=== PATIENT | female | born 1960 | race African-American/Black ===

== ENCOUNTER 2022-05-02 04:34 | Inpatient (IN) | payer MEDICAID ==
[~2022-05-02] VITALS: Ht 170.2 cm; Wt 62.5 kg
[~2022-05-02 04:34] MED LIST: ALBUTEROL; CARB200T PO; DILANTIN; PHEN100C4 PO; TEGRETOL
[2022-05-02] MEDS ORDERED: METHYLPREDNISOLONE SOD SUCC 125 MG/2 ML VIAL IV STA (06:02)
[2022-05-02] MEDS ORDERED: IPRATROPIUM BROMIDE (0.02%) 0.5MG/2.5ML NEB HHN STA (06:02)
[2022-05-02] MEDS ORDERED: ALBUTEROL (0.083%) 2.5MG/3ML NEB HHN STA (06:02)
[2022-05-02 06:25] LABS: BASOPHILS % 0.3 % (0.0-2.0); EOSINOPHILS % 0.2 % (0.0-5.0); HEMATOCRIT. 38.6 % (36.0-48.0); HEMOGLOBIN. 12.9 g/dL (12.0-16.0); LYMPHOCYTES % 14.5 % (20.0-50.0); MEAN CORPUSCULAR HEMOGLOBIN 33.4 pg (28.0-32.0); MEAN CORPUSCULAR VOLUME 99.8 fL (81.0-99.0); MEAN PLATELET VOLUME 9.3 fl (7.4-10.4); MONOCYTES % 7.4 % (2.0-8.0); NEUTROPHILS % 77.6 % (40.0-76.0); PLATELET 138 x1000/uL (130-400); RED BLOOD CELL COUNT 3.86 mill/uL (4.2-5.4); RED CELL DISTRIBUTION WIDTH 14.2 % (11.6-14.6)
[2022-05-02 06:31] LABS: CHLORIDE 108 mEq/L (98-107)
[2022-05-02] MEDS ORDERED: ALBUTEROL (0.083%) 2.5MG/3ML NEB ONE (07:45)
[2022-05-02 13:15] VITALS: BP 126/66
[2022-05-02] MEDS ORDERED: ASPI-1406 PO (14:17)
[2022-05-02] MEDS ORDERED: KEPP500 PO (14:17)
[2022-05-02] MEDS: ASPIRIN 81MG EC TABLET PO SCH (15:45)
[2022-05-02] MEDS ORDERED: ONDANSETRON HCL 4MG/2ML INJ IV PRN (15:45)
[2022-05-02] MEDS ORDERED: IPRATROPIUM/ALBUTEROL 0.5-3(2.5)MG/3ML NEB HHN PRN (15:45)
[2022-05-02 16:00] VITALS: BP 135/87
[2022-05-02] MEDS ORDERED: CARBAMAZEPINE 100MG TABLET CHEW PO SCH (17:00)
[2022-05-02] MEDS: LEVOFLOXACIN 500MG PREMIX 100 ML IV SCH (17:26)
[2022-05-02] MEDS: LEVETIRACETAM 500MG TABLET PO SCH ×2 (17:27→22:24)
[2022-05-02] MEDS: ENOXAPARIN 40MG/0.4ML SYR SUBCUT SCH (17:28)
[2022-05-02] MEDS: ACETAMINOPHEN 325MG TABLET PO PRN ×2 (17:29→22:25)
[2022-05-02 20:00] VITALS: BP 121/54
[2022-05-02] MEDS: GUAIFENESIN 200MG/10ML SUGAR FREE UDC PO PRN (22:24)
[2022-05-02] MEDS: CARBAMAZEPINE 200MG TABLET PO SCH (22:24)
[2022-05-03] VITALS: BP 133/65
[2022-05-03 01:02] LABS: CLARITY URINE CLEAR (CLEAR); COLOR URINE YELLOW (YELLOW); KETONES URINE NEGATIVE (NEGATIVE); LEUKOCYTE ESTERASE URINE 1+ (NEGATIVE); NITRITE URINE NEGATIVE (NEGATIVE); OCCULT BLOOD URINE NEGATIVE (NEGATIVE); PH URINE 6.5 (4.5-8.0); PROTEIN URINE TRACE (NEGATIVE); SPECIFIC GRAVITY URINE 1.018 (1.005-1.030)
[2022-05-03 01:18] LABS: *AMPHETAMINES SCREEN URINE NEGATIVE (NEGATIVE); *BARBITURATES SCREEN URINE NEGATIVE (NEGATIVE); *BENZODIAZEPINES SCREEN URINE NEGATIVE (NEGATIVE); *COCAINE SCREEN URINE NEGATIVE (NEGATIVE); CANNABINOID URINE SCREEN PRESUMTIVE POSITIVE (NEGATIVE); METHADONE URINE SCREEN NEGATIVE (NEGATIVE); OPIATES URINE SCREEN PRESUMTIVE POSITIVE (NEGATIVE); PHENCYCLIDINE URINE SCREEN NEGATIVE (NEGATIVE)
[2022-05-03 03:08] LABS: CREATINE KINASE MB FRACTION 1.8 ng/mL (0.5-3.6)
[2022-05-03 03:59] VITALS: BP 128/61
[2022-05-03] MEDS: GUAIFENESIN 200MG/10ML SUGAR FREE UDC PO PRN ×3 (04:14→19:32)
[2022-05-03] MEDS: ACETAMINOPHEN 325MG TABLET PO PRN ×2 (06:25→14:28)
[2022-05-03 08:00] VITALS: BP 124/60
[2022-05-03 10:41] LABS: CREATINE KINASE MB FRACTION 2.1 ng/mL (0.5-3.6)
[2022-05-03] MEDS: LEVETIRACETAM 500MG TABLET PO SCH ×2 (11:00→21:36)
[2022-05-03] MEDS: CARBAMAZEPINE 200MG TABLET PO SCH ×3 (11:00→17:43)
[2022-05-03] MEDS: ASPIRIN 81MG EC TABLET PO SCH (11:00)
[2022-05-03 12:00] VITALS: BP 118/76
[2022-05-03] MEDS: METHYLPREDNISOLONE SOD SUCC 40 MG/ML VIAL IV SCH ×2 (12:22→21:36)
[2022-05-03 16:00] VITALS: BP 121/77
[2022-05-03] MEDS: LEVOFLOXACIN 500MG PREMIX 100 ML IV SCH (17:17)
[2022-05-03] MEDS: ENOXAPARIN 40MG/0.4ML SYR SUBCUT SCH (17:43)
[2022-05-03] MEDS ORDERED: POTASSIUM CHLORIDE 20MEQ TABLET SR PO NR (19:45)
[2022-05-03 20:00] VITALS: BP 108/72
[2022-05-03] MEDS: FAMOTIDINE 20MG TABLET PO SCH (21:36)
[2022-05-04] VITALS: BP 141/91
[2022-05-04 04:00] VITALS: BP 117/74
[2022-05-04] MEDS: METHYLPREDNISOLONE SOD SUCC 40 MG/ML VIAL IV SCH ×3 (04:30→20:20)
[2022-05-04 08:01] VITALS: BP 118/63
[2022-05-04] MEDS: CARBAMAZEPINE 200MG TABLET PO SCH ×3 (08:38→16:45)
[2022-05-04] MEDS: LEVETIRACETAM 500MG TABLET PO SCH ×2 (08:38→20:20)
[2022-05-04] MEDS: ASPIRIN 81MG EC TABLET PO SCH (08:42)
[2022-05-04] MEDS: LEVOFLOXACIN 500MG TABLET PO SCH (11:29)
[2022-05-04 12:06] VITALS: BP 102/66
[2022-05-04] MEDS ORDERED: INFLUENZA VACCINE 05/PF 0.5 ML SYRINGE IM ONE (15:30)
[2022-05-04] MEDS ORDERED: PNEUMOCOCCAL 23-VAL P-SAC VAC 0.5 ML IM ONE (15:30)
[2022-05-04 15:46] VITALS: BP 112/64
[2022-05-04] MEDS: ENOXAPARIN 40MG/0.4ML SYR SUBCUT SCH (16:45)
[2022-05-04 20:00] VITALS: BP 117/41
[2022-05-04] MEDS: FAMOTIDINE 20MG TABLET PO SCH (20:20)
[2022-05-04] MEDS ORDERED: DIPHENHYDRAMINE 50MG/ML VIAL IV PRN (21:00)
[2022-05-05] VITALS: BP 120/56
[2022-05-05 04:00] VITALS: BP 122/51
[2022-05-05] MEDS: METHYLPREDNISOLONE SOD SUCC 40 MG/ML VIAL IV SCH ×2 (04:38→11:20)
[2022-05-05 08:00] VITALS: BP_SYST 114; BP_SYST 154; BP_DIAS 61; BP_DIAS 80
[2022-05-05] MEDS: CARBAMAZEPINE 200MG TABLET PO SCH ×2 (08:47→13:12)
[2022-05-05] MEDS: LEVETIRACETAM 500MG TABLET PO SCH (08:47)
[2022-05-05] MEDS: ASPIRIN 81MG EC TABLET PO SCH (08:50)
[2022-05-05] MEDS: LEVOFLOXACIN 500MG TABLET PO SCH (11:20)
[2022-05-05 15:25] VITALS: BP 117/39
== END 2022-05-05 16:26 | disposition home or self-care (01) | DRG 140 ==
LOC: ER 04:34 → 6WST 09:59
PROVIDERS: ADMIT Internal Medicine; ATTEND Internal Medicine
DX: J44.1 Chronic obstructive pulmonary disease with (acute) exacerbation (principal); J96.01 Acute respiratory failure with hypoxia; G40.909 Epilepsy, unspecified, not intractable, without status epilepticus; Z20.822 Contact with and (suspected) exposure to COVID-19; E87.6 Hypokalemia; F12.90 Cannabis use, unspecified, uncomplicated; Z86.73 Personal history of transient ischemic attack (TIA), and cerebral infarction without residual deficits
CPT/HCPCS: 36415; 71045; 80053; 80305; 81003; 82550; 82553; 83880; 84484; 85025; 87426; 90686; 90732; 93005; 94640; 99285; C9803; J1200; J1650; J1956; J2405; J2920; J2930

== ENCOUNTER 2023-02-06 06:02 | Emergency (ER) | payer MEDICAID ==
[~2023-02-06] VITALS: Ht 170.2 cm; Wt 73.0 kg
[~2023-02-06 06:02] MED LIST changes: +ASPI-1406 PO; +KEPP500 PO
[2023-02-06 06:06] VITALS: O2SAT 97
[2023-02-06] MEDS ORDERED: MECLIZINE 25MG TABLET PO ONE (06:15)
[2023-02-06 06:59] LABS: BASOPHILS % 0.9 % (0.0-2.0); EOSINOPHILS % 1.9 % (0.0-5.0); HEMATOCRIT. 36.5 % (36.0-48.0); HEMOGLOBIN. 12.4 g/dL (12.0-16.0); LYMPHOCYTES % 26.9 % (20.0-50.0); MEAN CORPUSCULAR VOLUME 94.1 fL (81.0-99.0); MEAN PLATELET VOLUME 9.2 fl (7.4-10.4); MONOCYTES % 7.6 % (2.0-8.0); NEUTROPHILS % 62.7 % (40.0-76.0); PLATELET 158 x1000/uL (130-400); RED BLOOD CELL COUNT 3.88 mill/uL (4.2-5.4); RED CELL DISTRIBUTION WIDTH 14.8 % (11.6-14.6); WHITE BLOOD COUNT 4.6 x1000/uL (4.5-11.0)
[2023-02-06 07:06] LABS: CHLORIDE 108 mEq/L (98-107); INDEX HEMOLYSI 1 (1-3); INDEX ICTERIC 1 (1-4); INDEX LIPEMIC 1 (1-3); POTASSIUM 3.7 mEq/L (3.5-5.1); SODIUM 138 mEq/L (136-145)
[2023-02-06 07:17] LABS: ALANINE AMINOTRANSFERASE 17 IU/L (13-61); ALBUMIN 3.7 g/dL (3.4-5.0); ASPARTATE AMINOTRANSFERASE 19 IU/L (15-37); BILIRUBIN TOTAL 0.3 mg/dL (0.1-1.0); CALCIUM 8.7 mg/dL (8.5-10.1); CARBON DIOXIDE 26 mEq/L (21-32); CREATININE 0.5 mg/dL (0.6-1.3); ETHANOL BLOOD < 10 mg/dL (-10); GLUCOSE 113 mg/dL (70-105); PROTEIN TOTAL 8.2 g/dL (6.0-8.3); TROPONIN I HIGH SENSITIVITY 10 ng/L (<54); UREA NITROGEN BLOOD 10 mg/dL (7-21)
[2023-02-06 07:40] LABS: PHENYTOIN < 0.4 ug/mL (10-20)
[2023-02-06] MEDS ORDERED: MECL-159 MT (09:27)
[2023-02-06 09:46] VITALS: BP 128/58; PULSE 68; RESP 18; TEMP 98.4
[2023-02-06] MEDS ORDERED: KETOROLAC 60MG/2ML VIAL IM ONE (10:00)
== END 2023-02-06 09:55 | disposition home or self-care (01) ==
LOC: ER 06:02
DX: R42 Dizziness and giddiness (principal); J45.909 Unspecified asthma, uncomplicated; Z88.5 Allergy status to narcotic agent; Z79.899 Other long term (current) drug therapy; Z86.73 Personal history of transient ischemic attack (TIA), and cerebral infarction without residual deficits; Z86.59 Personal history of other mental and behavioral disorders
CPT/HCPCS: 80053; 80320; 80185; 85025; 84484; 36415; 71045; 70450; 93005; 99285; J8597; J1885; Z7610; G0480

== ENCOUNTER 2023-06-11 20:42 | Emergency (ER) | payer MEDICAID ==
[~2023-06-11] VITALS: Ht 172.7 cm; Wt 75.0 kg
[~2023-06-11 20:42] MED LIST changes: +MECL-299 MT
[2023-06-11 20:49] VITALS: TEMP 98.6; O2SAT 97
[2023-06-11] MEDS ORDERED: GABA-529 MT (21:07)
[2023-06-11 21:30] VITALS: BP 145/90; PULSE 83; RESP 18
[2023-06-11] MEDS ORDERED: KETOROLAC 30MG/ML VIAL IM ONE (21:30)
[2023-06-11] MEDS ORDERED: GABAPENTIN 100MG CAPSULE PO ONE (21:30)
[2023-06-11] MEDS ORDERED: IBUP-2029 MT (21:48)
== END 2023-06-11 22:42 | disposition home or self-care (01) ==
LOC: ER 20:42
DX: G62.9 Polyneuropathy, unspecified (principal); J45.909 Unspecified asthma, uncomplicated; Z86.73 Personal history of transient ischemic attack (TIA), and cerebral infarction without residual deficits; Z79.899 Other long term (current) drug therapy
CPT/HCPCS: 99283; 96372; J1885